=== PATIENT | male | born 1965 | race Caucasian/White ===

== ENCOUNTER 2016-08-07 07:24 | Emergency (ER) | payer MEDICARE ==
[2015-11-02 13:18] VITALS: BMI 41.1
[~2016-08-07 07:24] MED LIST: CELEXA40 MG PO; ELIQUIS2.5 MG PO; HYDROCODONE-APA1 TAB PO; LITHIUM CARBON300 MG PO; LOPRESSOR25 MG PO; NEURONTIN 300300 MG PO; PERCOCET 10/3251 TA1 PO; ZOCOR40 MG PO
== END 2016-08-07 07:55 | disposition home or self-care (01) ==
LOC: D.ER 07:24
DX: M25.562 Pain in left knee (principal); F31.9 Bipolar disorder, unspecified; F20.9 Schizophrenia, unspecified

== ENCOUNTER → 2016-08-17 19:46 | Outpatient (CLI) | payer MEDICARE ==
[2015-11-02 13:18] VITALS: BMI 41.1
== END | disposition home or self-care (01) ==
LOC: D.LABREF 19:46
DX: M25.562 Pain in left knee (principal)

== ENCOUNTER 2016-08-25 09:00 | Inpatient (IN) | payer MEDICARE ==
[~2016-08-25] VITALS: Ht 172.7 cm; Wt 115.0 kg
--- NOTE | ~2016-08-25 | HEMODYNAMI ---
PATIENT:MORGAN SANTIZO MEDICAL RECORD: [id number] : 63 LOCATION:D. D.2216 ADMISSION DATE: 08/29/16 Generatedon:09/01/201614:25 Patient name: MORGAN SANTIZO Patient #: [id number] SSN: : 1965 Date of study: 09/01/2016 Page: Of Hemodynamic Procedure Report Patient Data Patient Demographics Procedure consent was obtained First Name: MORGAN Gender: Male Last Name: SUKHDEV : 1965 [facility] Initial: D Age: 51 year(s) Patient #: [id number] Race: Unknown Additional ID: [id number] Contact details [address]: [address] [place] [address] [place] State: [place] City: [place] Zip code: [address] Admission Admission Data Admission Date: 08/29/2016 Admission Time: 6:09 Room #: D.2216 Procedure Procedure Types Cath Procedure Peripheral Cath Diagnostic Procedure US Vascular Access PICC PICC Line Placement Fluoro Fluoro Guidance Venous Device Procedure Description Procedure Date Procedure Date: 09/01/2016 Procedure Start Time: 14:15 Procedure End Time: 14:23 Procedure Staff Name Function Swapnil Julian MD Performing Physician Deep Herrera RT Scrub Viji Parekh RN Nurse Letha Michel RT Energy Manager Letha Michel RT Monitor Procedure Data Cath Procedure Fluoroscopy Diagnostic fluoroscopy Total fluoroscopy Time: 0.3 time: 0.3 min min Diagnostic fluoroscopy Total fluoroscopy dose: dose: 4.83 mGy 4.83 mGy Procedure Medications Medication Administration Route Dosage Heparin Flush Bag added to field 1 bags (1000units/500ml NS) Lidocaine 1% added to field 20 Hemodynamics Rest Pre Cath Intra NCS Post Cath Medications Time Medication Route Dose Verified Delivered Reason Notes Effe ctiveness by by 14:10:04 Lidocaine 1% added 20ml Viji Kraft for local to vial Izabella Julian anesthetic field SELENA WATTS 14:10:49 Heparin Flush added 1 Viji Kraft used for Bag to bags Izabella Julian procedure (1000units/500ml field SELENA WATTS NS) Procedure Log Time Note 13:50:56 Time tracking: Regular hours 13:50:58 Deep Herrera RT (R) (CV) sent for patient. Start room use. 13:51:11 Patient received from Med/Surg to IR Alert and oriented. Tansferred to table in Supine position. 13:51:27 Signed procedure consent form obtained from patient. 13:51:28 Pre-procedure instructions explained to patient. 13:51:31 Use device set PICC 13:51:35 Bag Decanter opened to sterile field. 13:51:36 Sterile Angiographic Pack opened to sterile field. 13:51:36 SorbaView Shield opened to sterile field. 13:51:39 Pre-op teaching completed and patient verbalized understanding. 13:52:22 Patient pain scale 8/10 knee pain. 13:54:13 Right Arm area was prepped with chlora-prep and draped in sterile fashion 13:54:20 Sedation plan: Local Anesthetic Lidocaine 13:54:21 Sharps counted by scrub and verified by R.N. 14:00:31 PowerPICC 5Fr double lumen catheter opened to sterile field. 14:00:38 SUTURE ETHILON 2-0 BLK MONO FS opened to sterile field. 14:10:04 Lidocaine 1% 20ml vial added to field was administered by Swapnil Julian MD; for local anesthetic; 14:10:49 Heparin Flush Bag (1000units/500ml NS) 1 bags added to field was administered by Swapnil Julian MD; used for procedure; 14:12:55 Physician arrived 14:14:35 --------ALL STOP TIME OUT------ 14:14:36 Final Timeout: patient, procedure, and site verified with staff and physician. All members of the team are in agreement. 14:15:03 Procedure started. 14:15:03 Full Disclosure recording started 14:15:14 Local anesthetic to right arm with Lidocaine 1% by Swapnil Julian MD.INITIAL ACCESS ONLY 14:15:17 Venous access obtained using ultrasound guidance. 14:18:25 PICC line was trimmed to 41cm and advanced to the superior vena cava.Position verified under fluoroscopy. 14:19:15 PICC was secured to the skin with 2.0 ethilon suture. 14:20:14 Procedure ended.(Physican Out) 14:20:28 Fluoroscopy time 00.30 minutes. 14:20:41 Fluoroscopy dose: 4.83 mGy 14:20:41 Flurop Dose total: 4.83 14:20:46 Sharps counted by scrub and verified by R.N. 14:20:55 Post procedure instruction explained to patient.Patient verbalizes understanding. 14:23:22 Procedure and supply charges have been captured, reviewed, submitted and are correct. 14:23:24 See physician's report for complete and final results. 14:23:29 Report given to Med/Surg. 14:23:34 Patient transfered to Med/Surg with Bed. 14:23:37 Procedure ended. 14:23:37 Full Disclosure recording stopped 14:23:41 End room use (Document Last) Device Usage Item Name Manufacture Quantity Catalog Hospital Part Current Minimal Lot# / Number Charge Number Stock Stock Serial# Code Bag Decanter Microtek 1 [id number] 5 Medical [employer]. Sterile Cardinal 1 [id number] 5 Angiographic Health Pack SorbaView Centurion 1 [id number] 5 Shield Power[facility] COUNTY HOSPITALC Bard 1 [id number] [id number] [id number] 5 5Fr double lumen catheter SUTURE Ethicon 1 [id number] 5 ETHILON 2-0 BLK MONO FS Signature Audit [place] Stage Time Signature Unsigned Intra-Procedure 09/01/2016 Letha Michel 2:25:18 PM RT(R) Signatures Monitor : Letha Michel Signature : RT Date : Time : [facility] [address] [place] [address]
[2016-08-25 09:06] LABS: BASOPHILS 0.3 % (0-2); EOSINOPHILS 2.6 % (0-7); HEMATOCRIT 42.9 % (42.0-54.0); HEMOGLOBIN 14.3 g/dL (13.5-17.5); IMMATURE GRANULOCYTES 0.3 % (0-5); LYMPHOCYTES 13.7 % (15-50); MCH 31.4 pg (26.0-34.0); MCHC 33.3 g/dL (31.0-37.0); MCV 94.3 fL (80.0-100.0); MEAN PLATELET VOLUME 9.3 fL (7.4-10.4); MONOCYTES 9.2 % (2-11); NEUTROPHILS 73.9 % (40-80); RBC 4.55 10x6/uL (4.20-6.10); RDW 12.4 % (11.5-14.5); WBC 9.3 10x3/uL (4.8-10.8)
[2016-08-25 09:07] LABS: PLATELET COUNT 587 10x3/uL (130-400)
[2016-08-25 09:14] LABS: INR 1.05 (0.85-1.17); PROTIME 13.6 SECONDS (11.6-15.0)
[2016-08-25 09:26] LABS: CALC OSMOLALITY 271 mosm/kg (275-300); CALCIUM 9.8 mg/dL (8.5-10.1); CARBON DIOXIDE 26.5 mmol/L (21.0-32.0); CHLORIDE - SERUM 100 mmol/L (98-107); GLUCOSE 116 mg/dL (74-106); POTASSIUM - SERUM 4.3 mmol/L (3.5-5.1); SODIUM 136 mmol/L (136-145); UREA NITROGEN 11 mg/dL (7-18); eGFR NON AFRICAN AMERICAN 83 mL/min (90-120)
[2016-08-25 09:32] LABS: APPEARANCE CLEAR (CLEAR); BILIRUBIN NEGATIVE (NEGATIVE); COLOR DK YELLOW (YELLOW); GLUCOSE NEGATIVE (NEGATIVE); KETONE NEGATIVE (NEGATIVE); LEUKOCYTE ESTERASE TRACE (NEGATIVE); NITRITE NEGATIVE (NEGATIVE); PROTEIN TRACE mg/dL (NEGATIVE)
[2016-08-25 09:33] LABS: BACTERIA NONE SEEN /hpf (NONE SEEN); EPITHELIAL CELLS 0-5 /hpf (0-5); MUCUS <1+ /lpf (NONE SEEN); RED CELLS - URINE 0-5 /hpf (0-5); WHITE CELLS - URINE 0-5 /hpf (0-5)
[2016-08-29] VITALS (8 sets, daily range): BP systolic 112–144; BP diastolic 73–95; Ht 172.7 cm; Wt 115.0 kg
--- NOTE | 2016-08-29 19:41 | NUR ---
PATIENT STATED HE LEFT HIS PERSONAL ITEMS IN OUTPATIENT THIS MORNING. CALLED OUTPATIENT SPOKE WITH SAFIA SHE SAID SHE WILL LOOK AND IF SHE HAS ANYTHING OVER THERE SHE WILL BRING IT TO HIM.
--- NOTE | 2016-08-29 20:00 | NUR ---
ASSESSMENT PER FLOWSHEET. IV PATENT LEFT FOREARM OF 1/2NS AT 75CC'S/HR DRESSING TO LEFT KNEE C/D/I WITH IMOBILIZER IN PLACE. SCD'S ON. TIE BUCKER OF DILAUDID IN USE WITH SETTINGS AT 0.2MG Q10MIN W/4MG Q4H L/O.
--- NOTE | 2016-08-29 21:30 | NUR ---
MEDS GIVEN PER MAR.
--- NOTE | 2016-08-29 23:00 | NUR ---
DRESSING TO LEFT KNEE DRAINING RE-INFORCED WITH 4X4'S AND ABD. AND MAYRA WRAP SITE. ICE BAG APPLIED TO KNEE AND IMOBILIZER ON. ELEVATED LEFT LEG ON PILLOWS.
[2016-08-30] VITALS (7 sets, daily range): BP systolic 95–142; BP diastolic 54–82
--- NOTE | 2016-08-30 00:45 | NUR ---
UA SPECIMEN OBTAINED AND SENT TO LAB
[2016-08-30 00:53] LABS: APPEARANCE CLEAR (CLEAR); COLOR YELLOW (YELLOW); GLUCOSE 250 mg/dL (NEGATIVE); LEUKOCYTE ESTERASE NEGATIVE (NEGATIVE); NITRITE NEGATIVE (NEGATIVE); PH 6.5 (5.0-6.0); PROTEIN NEGATIVE (NEGATIVE)
[2016-08-30 00:54] LABS: BILIRUBIN NEGATIVE (NEGATIVE); KETONE NEGATIVE (NEGATIVE); UROBILINOGEN NORMAL (NORMAL)
[2016-08-30 05:06] LABS: HEMATOCRIT 37.6 % (42.0-54.0); HEMOGLOBIN 12.5 g/dL (13.5-17.5); MCHC 33.2 g/dL (31.0-37.0); MCV 93.3 fL (80.0-100.0); MEAN PLATELET VOLUME 9.5 fL (7.4-10.4); RBC 4.03 10x6/uL (4.20-6.10); RDW 12.2 % (11.5-14.5); WBC 12.3 10x3/uL (4.8-10.8)
--- NOTE | 2016-08-30 07:05 | NUR ---
PATIENT RECEIVED IN HIGH TORO POSITION ALERT AND WATCHING TV. NO SIGNS OF DISTRESS NOTED. DENIES NEEDS. SIDE RAILS UP X2. BED IN LOW POSITION. CALL LIGHT AND EDITOR BOOK BUTTON IN REACH.
--- NOTE | 2016-08-30 08:30 | NUR ---
PATIENT ALERT IN BED EATING BREAKFAST. TOLERATING WELL. SCHEDULED MEDICATION ADMINISTERED. DENIES NEEDS. SIDE RAILS UP X2. BED IN LOW POSITION. CALL LIGHT IN REACH. WILL CONTINUE TO MONITOR.
--- NOTE | 2016-08-30 12:00 | NUR ---
PATIENT IN MID TORO POSITION RESTING WITH EYES CLOSED. RESPIRATIONS EVEN AND UNLABORED. WAKES EASY. SCHEDULED IV ABX INITIATED. SIDE RAILS UP X2. BED IN LOW POSITION. CALL LIGHT IN REACH.
--- NOTE | 2016-08-30 12:05 | NUR ---
INCENTIVE SPIROMETER AND TEACHING ON USE PROVIDED. STATES UNDERSTANDING. DENIES NEED. WILL ENCOURAGE USE.
--- NOTE | 2016-08-30 17:27 | NUR ---
ALERT IN BED EATING DINNER. TOLERATING WELL. SIDE RAILS UP X2. BED IN LOW POSITION. CALL LIGHT IN REACH. DENIES NEEDS.
--- NOTE | 2016-08-30 20:00 | NUR ---
ASSESSMENT PER FLOWSHEET. DRESSING TO LEFT KNEE C/D/I IMOBILIZER IN PLACE. IV PATENT LEFT WRIST WITH 1/2NS INFUSING AT 50CC'S/HR. SITE CLEAR. SR UP X2 CALL LIGHT WITHIN REACH . SCD ON RT LEG.
--- NOTE | 2016-08-30 21:15 | NUR ---
MEDS GIVEN PER MAR.
--- NOTE | 2016-08-30 22:28 | NUR ---
AWAKE ALERT WATCHING TV. DENIES NEEDS.
--- NOTE | 2016-08-31 | NUR ---
RESTING QUIETLY DENIES NEEDS.
--- NOTE | 2016-08-31 03:00 | NUR ---
EYES CLOSED RESPIRATIONS WITH EASE AND UNLABORED.
[2016-08-31 05:19] LABS: HEMATOCRIT 34.7 % (42.0-54.0); HEMOGLOBIN 11.5 g/dL (13.5-17.5); MCH 31.1 pg (26.0-34.0); MCHC 33.1 g/dL (31.0-37.0); MCV 93.8 fL (80.0-100.0); MEAN PLATELET VOLUME 9.2 fL (7.4-10.4); RBC 3.7 10x6/uL (4.20-6.10); RDW 12.5 % (11.5-14.5); WBC 9.9 10x3/uL (4.8-10.8)
[2016-08-31 05:47] LABS: CALC OSMOLALITY 271 mosm/kg (275-300); CALCIUM 8.9 mg/dL (8.5-10.1); CARBON DIOXIDE 29.4 mmol/L (21.0-32.0); CHLORIDE - SERUM 100 mmol/L (98-107); CREATININE - SERUM 0.8 mg/dL (0.6-1.3); GLUCOSE 104 mg/dL (74-106); SODIUM 136 mmol/L (136-145); UREA NITROGEN 12 mg/dL (7-18); eGFR NON AFRICAN AMERICAN > 90 mL/min (90-120)
[2016-08-31 06:30] VITALS: BP 132/85
[2016-08-31 08:01] VITALS: BP 122/83
--- NOTE | 2016-08-31 08:02 | NUR ---
AWAKE AND ALERT. ORIENTED X3. NO C/O AT THIS TIME. LUNGS ARE CLEAR BILATERALLY, NO COUGH NOTED. SKIN IS INTACT WITHOUT REDNESS EXCEPT INCISION TO LEFT KNEE WHICH HAS A DRY INTACT DRESSING IN PLACE. SCD'S IN PLACE TO RIGHT LEG AT THIS TIME. IV TO LEFT FOREARM IS PATENT WITHOUT REDNESS AT INSERTION SITE. DENIES NEEDS.
[2016-08-31 10:52] LABS: PROTEIN - BODY FLUID 5.8 G/DL
--- NOTE | 2016-08-31 10:52 | NUR ---
08/31/2016 10:45 DCP: Discharge Planning Patient Name: MORGAN SANTIZO Admission Status: Elective Accout number: [id number] Admission Date: 08-29-2016 : 1965 Admission Diagnosis:INFECT/INFLM REACTION DUE TO INTERNAL R KNEE PROSTH, IN Attending: BRAVO Current LOS: 2 Anticipated DC Date: 09-02-2016 Planned Disposition: Home Primary Insurance: MEDICARE A & B Discharge Planning Comments: CM MET WITH PATIENT TO ASSESS DISCHARGE PLANNING NEEDS. PT STATES HE IS RETURNING TO A [facility] WHERE HE LIVES WITH HIS NIECE AND NEPHEW NICOLE CANNON ) THERE ARE 4 STEPS TO HOME WITH A RAIL AND HIS NEICE AND NEPHEW WILL TAKE HIM HOME WHEN THE TIME COMES. PT STATES THAT IF HH IS NEEDED THAT NICOLE WILL MAKE THE CHOICE OF WHO HE WILL USE. PT HAS A CANE AT HOME. CM WILL CONTINUE TO FOLLOW AND ASSIST WITH NEEDED WITH DISCHARGE PLANNING/NEEDS. [facility] [place] [phone] OCTAVIO BHATTI RN * Is the patient Alert and Oriented? Yes 0 * How many steps to enter\exit or inside your home? 4 0 * PCP [facility] 0 * [facility] [place] 0 * Preadmission Environment Home with Family 0 * ADLs Independent 0 * Equipment Cane 0 * List name and contact numbers for known caregivers / representatives who currently or will assist patient after discharge: NICOLE CANNON [phone] (NIECE) DL (NEPHEW) 0 * Community resources currently utilized None 0 * Additional services required to return to the preadmission environment? No 0 * Can the patient safely return to the preadmission environment? Yes 0 * Has this patient been hospitalized within the prior 30 days at any hospital? No 0
[2016-08-31 11:08] LABS: LYMPH - BF 8 %; MACROPHAGES BF 7 %; NEUT - BF 85 %
--- NOTE | 2016-08-31 11:15 | NUR ---
400CC CLEAR YELLOW URINE IN URINAL. DENIES NEEDS.
--- NOTE | 2016-08-31 12:30 | NUR ---
ATE ALL OF LUNCH. NO C/O AT THIS TIME. DENIES NEEDS.
[2016-08-31 12:46] VITALS: BP 125/83
[2016-08-31 16:17] VITALS: BP 125/69
--- NOTE | 2016-08-31 18:59 | NUR ---
ATE ALL OF SUPPER. DENIES NEEDS. NO CHANGES NOTED.
[2016-08-31 20:00] VITALS: BP 96/72
--- NOTE | 2016-08-31 20:00 | NUR ---
ASSESSMENT PER FLOWSHEET. DRESSING TO LEFT KNEE C/D/I IMMOBILIZER OFF ORDERED. IV PATENT LEFT WRIST OF 1/2NS AT 50CC'S/HR SITE CLEAR. SUPERVISOR CUTTING AND SEWING ROOM OF DILAUDID IN USE WITH SETTINGS AT 0.2MG Q10MIN WITH 4MG Q4H L/O. SR UP X2 CALL LIGHT WITHIN REACH DENIES NEEDS.
--- NOTE | 2016-08-31 21:10 | NUR ---
MEDS GIVEN PER MAR.
--- NOTE | 2016-08-31 21:55 | NUR ---
RESTING QUIETLY WATCHING TV
[2016-09-01] VITALS: BP 112/71
--- NOTE | 2016-09-01 | NUR ---
EYES CLOSED RESPIRATIONS WITH EASE AND UNLABORED. BODY IN GOOD ALIGNMENT.
[2016-09-01 04:00] VITALS: BP 115/78
--- NOTE | 2016-09-01 04:25 | NUR ---
RESTING QUIETLY DENIES NEEDS. SR UP X2 CALL LIGHT WITHIN REACH.
--- NOTE | 2016-09-01 07:35 | NUR ---
AWAKE AND ALERT. ORIENTED X3. NO C/O THIS AM. LUNGS ARE CLEAR BILATERALLY, NO COUGH NOTED. SKIN IS INTACT WITHOUT REDNESS EXCEPT INCISION TO LEFT KNEE WHICH HAS A DRY INTACT DRESSING IN PLACE. IV TO LEFT WRIST IS PATNET WITHOUT REDNESS AT INSERITON SITE. DENIES NEEDS.
[2016-09-01 07:38] VITALS: BP 125/82
[2016-09-01 09:05] LABS: HEMATOCRIT 36.4 % (42.0-54.0); HEMOGLOBIN 12.4 g/dL (13.5-17.5); MCH 31.6 pg (26.0-34.0); MCHC 34.1 g/dL (31.0-37.0); MCV 92.9 fL (80.0-100.0); MEAN PLATELET VOLUME 9.1 fL (7.4-10.4); RBC 3.92 10x6/uL (4.20-6.10); RDW 12.6 % (11.5-14.5); WBC 8.4 10x3/uL (4.8-10.8)
[2016-09-01 09:15] LABS: CALC OSMOLALITY 267 mosm/kg (275-300); CALCIUM 9.3 mg/dL (8.5-10.1); CHLORIDE - SERUM 96 mmol/L (98-107); CREATININE - SERUM 0.9 mg/dL (0.6-1.3); GLUCOSE 147 mg/dL (74-106); POTASSIUM - SERUM 3.8 mmol/L (3.5-5.1); SODIUM 132 mmol/L (136-145); UREA NITROGEN 12 mg/dL (7-18); eGFR NON AFRICAN AMERICAN > 90 mL/min (90-120)
--- NOTE | 2016-09-01 10:09 | NUR ---
Rehab Prescreening Consult recieved and the chart was reviewed. At this time he does not have the need for a 24/7 RN or a physician to see daily. He is POD#2. Rehab will follow while he is here for any changes. Kaylie Myers RN Clinical Liaison, Rehab
--- NOTE | 2016-09-01 10:32 | NUR ---
RESTING QUIETLY IN BED. DENIES NEEDS.
[2016-09-01 12:33] VITALS: BP 111/76
--- NOTE | 2016-09-01 14:25 | NUR ---
GONE VIA BED FOR PICC PLACEMENT.
--- NOTE | 2016-09-01 14:31 | NUR ---
RETURNED FROM PROCEDURE.
[2016-09-01 15:57] VITALS: BP 123/76
--- NOTE | 2016-09-01 18:20 | NUR ---
ATE ALL OF SUPPER. NO C/O AT THIS TIME. DENIES NEEDS.
[2016-09-01 20:00] VITALS: BP 128/75
--- NOTE | 2016-09-01 22:27 | NUR ---
ASSESSED AT THE BEGINNING OF THE SHIFT. HE IS ALERT AND ORIENTED, ABLE TO VERBALIZE NEEDS. HE HAS A URINAL AT THE BEDSIDE AND THE DRESSING TO HIS LEFT KNEE IS DRY AND INTACT. HE IS WEARING A SCD ON THE RIGHT LEG. THERE IS A PICC LINE WE ARE USING FOR FLUIDS AND HE HAS A CLERK ANALYST FOR PAIN CONTROL IN PLACE. NO COMPLAINTS HAVE BEEN VOICED AND HE IS WATCHING TV. THE BED IS LOW, RAILS UP X'S 2 WITH THE CALL LIGHT AT HAND.
[2016-09-02] VITALS: BP 120/73
[2016-09-02 04:00] VITALS: BP 121/68
[2016-09-02 06:33] LABS: HEMATOCRIT 35.7 % (42.0-54.0); HEMOGLOBIN 11.7 g/dL (13.5-17.5); MCH 30.8 pg (26.0-34.0); MCHC 32.8 g/dL (31.0-37.0); MCV 93.9 fL (80.0-100.0); MEAN PLATELET VOLUME 9.2 fL (7.4-10.4); RBC 3.8 10x6/uL (4.20-6.10); RDW 12.5 % (11.5-14.5); WBC 9.7 10x3/uL (4.8-10.8)
[2016-09-02 06:50] LABS: CALC OSMOLALITY 271 mosm/kg (275-300); CALCIUM 9.1 mg/dL (8.5-10.1); CARBON DIOXIDE 31.5 mmol/L (21.0-32.0); CHLORIDE - SERUM 98 mmol/L (98-107); CREATININE - SERUM 0.8 mg/dL (0.6-1.3); POTASSIUM - SERUM 4.1 mmol/L (3.5-5.1); SODIUM 136 mmol/L (136-145); UREA NITROGEN 12 mg/dL (7-18); eGFR NON AFRICAN AMERICAN > 90 mL/min (90-120)
[2016-09-02 06:54] LABS: GLUCOSE 92 mg/dL (74-106)
--- NOTE | 2016-09-02 07:15 | NUR ---
REPORT RECEIVED FROM RESEARCH ASSOCIATE MOLECULAR BIOLOGY NURSE. CALL LIGHT IN REACH.
[2016-09-02] MEDS ORDERED: ELIQUIS2.5 MG PO (07:42)
[2016-09-02] MEDS ORDERED: PERCOCET 10/3251 TA1 PO (07:43)
[2016-09-02] MEDS ORDERED: Ancef 2 GM/Dextrose IV (07:44)
[2016-09-02 07:46] VITALS: BP 133/52
--- NOTE | 2016-09-02 09:11 | NUR ---
ASSESSMENT COMPLETED. SCDs TO RLE. PERCOCET PO WITH AM MEDS D/T PAIN OF 10 TO LEFT KNEE. CALL LIGHT IN REACH. WILL CONTINUE WITH PLAN OF CARE.
--- NOTE | 2016-09-02 10:12 | NUR ---
CM REASSESSMENT NOTE: CM SENT REFERRAL TO [place] OR [facility] - SIGNED THE ECHO FORM FOR EITHER.
--- NOTE | 2016-09-02 10:45 | NUR ---
SITTING IN CHAIR PER PHYSICAL THERAPY. STATES PAIN HAS DECREASED TO AN 8.
--- NOTE | 2016-09-02 11:00 | NUR ---
SITTING UP ON SIDE OF BED BATHING. NO C/O AT THIS TIME. DRESSING TO LEFT KNEE IS DRY AND INTACT. NEURO CHECKS WNL.
[2016-09-02 11:51] VITALS: BP 118/57
--- NOTE | 2016-09-02 12:50 | NUR ---
EATING LUNCH AT THIS TIME. DENIES NEEDS AT THIS TIME. CALL LIGHT IN REACH.
--- NOTE | 2016-09-02 14:19 | OP ---
PATIENT NAME: MORGAN SANTIZO MEDICAL RECORD: [id number] :[birth year] LOCATION:D.MS [id number] ADMISSION DATE:08/29/16 SURGEON: SONJA SCHMITT MD DATE OF OPERATION: 08/29/2016 PREOPERATIVE DIAGNOSIS: Painful total knee arthroplasty of the left knee. 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 PROCEDURES: 1. Excisional debridement and removal of previously placed total knee arthroplasty. 2. Implant of antibiotic cement spacer. SURGEON: Sonja Schmitt MD. ANESTHESIA: General. INTRAOPERATIVE COMPLICATIONS: None. SUMMARY OF PATHOLOGIC FINDINGS: Upon entering the patient's knee, it was clearly purulent. Ironically, preoperative evaluation did not indicate such. OPERATIVE SUMMARY IN DETAIL: After obtaining the appropriate orthopedic surgery consent as well as anesthetic consultation, evaluation and clearance, the patient was brought to the operating room and placed on the operating table in supine position. After general laryngeal mask airway was administered, a tourniquet was placed about the proximal aspect of the right lower extremity. Right lower extremity was then prepped and draped in routine sterile fashion. The leg was elevated and exsanguinated, tourniquet inflated to 350 mmHg. Routine midline incision was taken down for paramedian arthrotomy. When a paramedian arthrotomy was performed, substantial amounts of purulent material came forth. It was sent with multiple cultures, as well as fluid for synovial analysis. At this point, decision was made not to revise the knee. The knee was exposed and ironically, the femur came off with very little degree of difficulty, clearly with infection underneath it as all the cement and the component came off very easily. Likewise, the tibial baseplate came off easily as did the patella indicating osteolysis and loosening of all the components. At this point, the wound was copiously irrigated. A combination of scalpel, curettage and rongeur, excisional debridement was done to include skin, subcutaneous tissue, portions of fat, fascia, muscle and bone. When it was felt that all infectious areas had been cleaned completely, pulsatile lavage was carried out for approximately 12 L. At this point, a size 7 triathlon component was coated completely with antibiotic-laden cement and was placed loosely with doughy cement over the distal femur as was a component of cement in the proximal tibia. Having completed this, the wound was closed with #2 Ethibond followed by #1 Vicryl, 2-0 Vicryl and skin sharon. Sterile dressings were applied. Tourniquet was deflated. A knee immobilizer was applied. The patient was awakened, taken to recovery in stable condition. All final needle and sponge counts were correct. TRANSINT:[id number] Voice Confirmation ID: [id number] DOCUMENT ID: [id number] OPERATIVE REPORT [id number] MORGAN SANTIZO MD, SONJA HICKS at 1419 CC: [id number] DICTATION DATE: 09/02/16913 HEAD TRIMMER: 09/02/16 1211 ADM IN [facility] [address] [place] [address]
--- NOTE | 2016-09-02 14:28 | NUR ---
C/O PAIN OF 10. PERCOCET PO. CALL LIGHT IN REACH.
--- NOTE | 2016-09-02 14:29 | NUR ---
CM REASSESSMENT NOTE: CM SENT NEIL -WAITING ON APPROVAL
--- NOTE | 2016-09-02 16:56 | NUR ---
2 GM ANCEF IVPB PER ORDER. PAIN OF 5 AT THIS TIME. WILL CONTINUE TO MONITOR.
--- NOTE | 2016-09-02 18:38 | NUR ---
REPORT CALLED TO ANA LUISA POSEY. DC'D TO AMBULANCE VIA [facility] WITH lawnmower repair mechanic.
[2016-09-03 08:17] LABS: HEPATITIS C ANTIBODY 0.2 (0.0-0.9)
--- NOTE | 2016-09-05 07:56 | NUR ---
late entry cm-patient discharged Monday to [facility] to a skilled bed.
== END 2016-09-02 18:38 | DRG 465 ==
LOC: D.MS 08-29 06:09 → D.SDCHOLD 08-29 06:09 → D.MS 08-29 16:47
PROVIDERS: Emergency Medicine; Student in an Organized Health Care Education/Training Program; ADMIT Orthopaedic Surgery
PROC: 0SHC08Z Insertion of Spacer into Right Knee Joint, Open Approach (ICD-10-PCS; 2016-08-29)
PROC: 0SPC0JZ Removal of Synthetic Substitute from Right Knee Joint, Open Approach (ICD-10-PCS; principal; 2016-08-29 09:30)
PROC: 02HV33Z Insertion of Infusion Device into Superior Vena Cava, Percutaneous Approach (ICD-10-PCS; 2016-09-01)
PROC: B548ZZA Ultrasonography of Superior Vena Cava, Guidance (ICD-10-PCS; 2016-09-01)
PROC: B5181ZA Fluoroscopy of Superior Vena Cava using Low Osmolar Contrast, Guidance (ICD-10-PCS; 2016-09-01)
DX: T84.53XA Infection and inflammatory reaction due to internal right knee prosthesis, initial encounter (principal); I10 Essential (primary) hypertension; E78.5 Hyperlipidemia, unspecified; F17.200 Nicotine dependence, unspecified, uncomplicated; B95.61 Methicillin susceptible Staphylococcus aureus infection as the cause of diseases classified elsewhere

== ENCOUNTER 2016-11-21 05:16 | Inpatient (IN) | payer MEDICARE ==
[2016-11-18 15:59] LABS: BASOPHILS 0.3 % (0-2); EOSINOPHILS 3.1 % (0-7); HEMATOCRIT 40.2 % (42.0-54.0); IMMATURE GRANULOCYTES 0.3 % (0-5); LYMPHOCYTES 26.7 % (15-50); MCH 31.8 pg (26.0-34.0); MCHC 34.8 g/dL (31.0-37.0); MCV 91.4 fL (80.0-100.0); MEAN PLATELET VOLUME 9.8 fL (7.4-10.4); NEUTROPHILS 61.6 % (40-80); PLATELET COUNT 263 10x3/uL (130-400)
[2016-11-18 16:01] LABS: APPEARANCE CLEAR (CLEAR); BILIRUBIN NEGATIVE (NEGATIVE); COLOR YELLOW (YELLOW); GLUCOSE NEGATIVE (NEGATIVE); KETONE NEGATIVE (NEGATIVE); LEUKOCYTE ESTERASE NEGATIVE (NEGATIVE); NITRITE NEGATIVE (NEGATIVE); PROTEIN NEGATIVE (NEGATIVE); UROBILINOGEN NORMAL (NORMAL)
[2016-11-18 16:15] LABS: INR 0.93 (0.85-1.17); PROTIME 12.3 SECONDS (11.6-15.0)
[2016-11-18 16:16] LABS: APTT 26.8 SECONDS (22.8-39.4)
[2016-11-18 16:26] LABS: CALC OSMOLALITY 275 mosm/kg (275-300); CALCIUM 8.9 mg/dL (8.5-10.1); CARBON DIOXIDE 27.2 mmol/L (21.0-32.0); CHLORIDE - SERUM 102 mmol/L (98-107); CREATININE - SERUM 0.8 mg/dL (0.6-1.3); GLUCOSE 109 mg/dL (74-106); POTASSIUM - SERUM 3.9 mmol/L (3.5-5.1); SODIUM 138 mmol/L (136-145); UREA NITROGEN 10 mg/dL (7-18); eGFR NON AFRICAN AMERICAN > 90 mL/min (90-120)
[~2016-11-21] VITALS: Ht 172.7 cm; Wt 131.8 kg
[~2016-11-21 05:16] MED LIST changes: +Ancef 2 GM/Dextrose IV
[2016-11-21 13:28] VITALS: BP 157/94; BMI 44.1
--- NOTE | 2016-11-21 20:58 | NUR ---
PT ARRIVED IN ROOM AT 2014, PILLOW UNDER LEFT KNEE, PER RN PT HAS 3 BLOCKS AT THE MOMENT. PT IS ALERT AND ORIENTED VERBALIZED NO PAIN AT THIS TIME. PT STATED VERY HUNGRY, GAVE SANDWICH, BED IN LOW POSITION, ICED KNEE, CALL LIGHT IN REACH
[2016-11-22] VITALS: BP 118/64
[2016-11-22 04:00] VITALS: BP 111/65
[2016-11-22 05:20] LABS: BASOPHILS 0 % (0-2); EOSINOPHILS 0.1 % (0-7); HEMATOCRIT 35.2 % (42.0-54.0); HEMOGLOBIN 12.2 g/dL (13.5-17.5); IMMATURE GRANULOCYTES 0.2 % (0-5); LYMPHOCYTES 4.7 % (15-50); MCH 31.9 pg (26.0-34.0); MCHC 34.7 g/dL (31.0-37.0); MCV 91.9 fL (80.0-100.0); MEAN PLATELET VOLUME 10.2 fL (7.4-10.4); MONOCYTES 5.7 % (2-11); NEUTROPHILS 89.3 % (40-80); PLATELET COUNT 241 10x3/uL (130-400); RBC 3.83 10x6/uL (4.20-6.10); RDW 13.8 % (11.5-14.5); WBC 9.2 10x3/uL (4.8-10.8)
[2016-11-22 05:31] LABS: PROTIME 13.1 SECONDS (11.6-15.0)
[2016-11-22 05:42] LABS: CALC OSMOLALITY 273 mosm/kg (275-300); CALCIUM 8.4 mg/dL (8.5-10.1); CARBON DIOXIDE 26.2 mmol/L (21.0-32.0); CHLORIDE - SERUM 102 mmol/L (98-107); CREATININE - SERUM 0.9 mg/dL (0.6-1.3); GLUCOSE 126 mg/dL (74-106); POTASSIUM - SERUM 4.3 mmol/L (3.5-5.1); SODIUM 135 mmol/L (136-145); UREA NITROGEN 17 mg/dL (7-18); eGFR NON AFRICAN AMERICAN > 90 mL/min (90-120)
[2016-11-22 06:11] VITALS: BP 118/64; Ht 172.7 cm; Wt 131.8 kg
--- NOTE | 2016-11-22 08:23 | NUR ---
PT SEEN THIS AM. NO COMPLAINTS AT PRESENT-STATES SIDER IS CONTROLLING PAIN WHEN NEEDED. MAYRA WRAT LEFT KNEE NOTED TO BE BLOOD STAINED-PAD UNDER KNEE CHANAED TO MONITOR FOR BLEEDING THIS AM. CALL LIGHT IN REACH
[2016-11-22 08:42] VITALS: BP 121/71
--- NOTE | 2016-11-22 11:20 | NUR ---
REPORT RECIEVED, ASSUMED CARE. PATIENT IN BED WITH IV INTACT. NO COMPLAINTS AT THIS TIME. CALL LIGHT WITHIN REACH. SITTING UP IN CHAIR. DRESSING BLEEDING THROUGH MAYRA. EXPLAINED TO PATIENT WOULD REINFORCE. VERBALIZED UNDERSTANDING.
--- NOTE | 2016-11-22 11:21 | NUR ---
Patient Name: MORGAN SANTIZO Admission Status: Elective Accout number: [id number] Admission Date: 11-21-2016 : 1965 Admission Diagnosis: Attending: BRAVO Current LOS: 1 Anticipated DC Date: Planned Disposition: Alf Facility Primary Insurance: MEDICARE A & B Discharge Planning Comments: CM met with patient to asses discharge planning needs. Patient stated that his plan was to return to the [facility] then to his home with his Niece, Renea. He stated that he is currently living at [place] till he gets better. Patient states that he has a walker and a shower chair. He is using the SC wheelchair at this time. CM will continue to follow and assist s needed. PCP: [facility] [place] ([place]) [phone] Dairy Farmer: Evelyne Ingram * Is the patient Alert and Oriented? Yes 0 * How many steps to enter\exit or inside your home? 7 0 * PCP [facility] 0 * Pharm[facility] [place] 0 * Preadmission Environment Alf Facility 0 * Facility Name [facility] 0 * ADLs Partial Dependent 0 * Partial ADLs (Assistance needed) Ambulation Transfers 0 * Equipment Shower Chair Walker 0 * List name and contact numbers for known caregivers / representatives who currently or will assist patient after discharge: RENEA TILLEY) [phone] * Community resources currently utilized None 0 * Additional services required to return to the preadmission environment? Yes 0 * Can the patient safely return to the preadmission environment? Yes 0 * Has this patient been hospitalized within the prior 30 days at any hospital? No 0 Grand Total: 0
--- NOTE | 2016-11-22 12:10 | NUR ---
PATIENT MAYRA WRAP CHANGED AND GAUZE AND MAYRA WRAP PLACED BACK ON. NO COMPLAINTS AT THIS TIME. IV INTACT. CALL LIGHT WITHIN REACH.
[2016-11-22 14:10] VITALS: BP 132/89
--- NOTE | 2016-11-22 15:51 | NUR ---
DISCONTINUED SHIRRING MACHINE OPERATOR AND PAIN MED GIVEN. IV INTACT, CALL LIGHT WITHIN REACH.
--- NOTE | 2016-11-22 17:30 | NUR ---
PATIENT SITTING UP IN BED EATING AT THIS TIME. IV INTACT. NO COMPLAINTS. CALL LIGHT WITHIN REACH.
[2016-11-22 19:00] VITALS: BP 134/89
--- NOTE | 2016-11-22 19:00 | NUR ---
IV REMOVED PER PATIENT REQUEST. CATH TIP INTACT. EXPLAINED TO PATIENT IF IV NEEDED HE WILL HAVE TO HAVE ONE RESTARTED. VERBALIZED UNDERSTANDING. CALL LIGHT WITHIN REACH.
[2016-11-23] VITALS: BP 122/80
--- NOTE | 2016-11-23 02:10 | NUR ---
2315)IV RESITED FOR IV ABX #22 X3 STICKS. PAVAN WELL WILL CONTINUE TO MONITOR FOR ANY CHGES. IN NEUROVASCULAR STSTUS AND FOLLOW CURRENT PLAN OF CARE
[2016-11-23 04:00] VITALS: BP 139/42
[2016-11-23 05:46] LABS: HEMATOCRIT 33.9 % (42.0-54.0); HEMOGLOBIN 11.4 g/dL (13.5-17.5)
--- NOTE | 2016-11-23 07:20 | NUR ---
PATIENT RECEIVED ALERT IN BED IN HIGH TORO POSITION. NO SIGNS OF DISTRESS NOTED. RATES PAIN 9/10. SIDE RAILS UP X2. BED IN LOW POSITION. CALL LIGHT IN REACH.
--- NOTE | 2016-11-23 08:00 | NUR ---
PATIENT ALERT IN BED. NO SIGNS OF DISTRESS NOTED. SCHEDULED MEDICATION WELL PRN TORADOL ADMINISTERED. DENIES FURTHER NEEDS. INCENTIVE SPIROMETER AND TEACHING PROVIDED. STATES UNDERSTANDING. SIDE RAILS UP X2. BED IN LOW POSITION. CALL LIGHT IN REACH.
[2016-11-23 08:38] VITALS: BP 127/81
--- NOTE | 2016-11-23 09:29 | NUR ---
Wound care consult/computer generated/ s/p left knee revision. Will monitor as needed.
--- NOTE | 2016-11-23 11:10 | NUR ---
SITTING UP IN CHAIR AT BEDSIDE. NO SIGNS OF DISTRESS NOTED. RATES PAIN 5/10. DENIES NEEDS. CALL LIGHT IN REACH.
[2016-11-23 12:57] VITALS: BP 135/79
--- NOTE | 2016-11-23 13:29 | NUR ---
SITTING UP IN CHAIR ALERT. NO SIGNS OF DISTRESS NOTED. PERCOCET PER PRN ORDER. DENIES FURTHER NEEDS. CALL LIGHT IN REACH.
--- NOTE | 2016-11-23 14:00 | NUR ---
PATIENT ALERT IN BED. SCD TO RIGHT LEG, PLEXI TO LEFT FOOT. DENIES NEEDS. SIDE RAILS UP X2. BED IN LOW POSITION. CALL LIGHT IN REACH.
--- NOTE | 2016-11-23 18:15 | NUR ---
ALERT IN BED VISITING WITH GUEST. NO SIGNS OF DISTRESS NOTED. PERCOCET PER PRN ORDER. DENIES FURTHER NEEDS. SIDE RAILS UP X2. BED IN LOW POSITION. CALL LIGHT IN REACH.
[2016-11-23 20:00] VITALS: BP 135/79
[2016-11-24] VITALS: BP 136/68
--- NOTE | 2016-11-24 00:04 | NUR ---
1944)REC'D. UP IN W/C IN [facility] DENIES ANY COMPLAINTS AT PRESENT TIME WILL CONTINE TO MONITOR NEUROVASCULAR STATUS AND FOLLOW CURRENT PLAN OF CARE
--- NOTE | 2016-11-24 03:36 | NUR ---
EYES CLOSED RESPIRATIONS WITH CHICHO AND UNLABORED.
[2016-11-24 04:00] VITALS: BP 139/92
[2016-11-24 05:56] LABS: HEMATOCRIT 33.5 % (42.0-54.0); HEMOGLOBIN 11.2 g/dL (13.5-17.5)
--- NOTE | 2016-11-24 07:10 | NUR ---
PATIENT RECEIVED ALERT IN MID TORO POSITION WATCHING TV. NO SIGNS OF DISTRESS NOTED. DENIES NEEDS. SIDE RAILS UP X2. BED IN LOW POSITION. CALL LIGHT IN REACH.
--- NOTE | 2016-11-24 07:53 | NUR ---
ALERT IN BED. SCHEDULED MEDICATION ADMINISTERED WELL PRN PERCOCET. NO FURTHER NEEDS VOICED. SIDE RAILS UP X2. BED IN LOW POSITION. CALL LIGHT IN REACH.
[2016-11-24] MEDS ORDERED: ELIQUIS2.5 MG PO ×2 (08:19→08:27)
[2016-11-24 08:26] VITALS: BP 177/96
[2016-11-24] MEDS ORDERED: PERCOCET 10/3251 TA1 PO (08:27)
--- NOTE | 2016-11-24 08:30 | NUR ---
IV TO LEFT UPPER ARM D/C WITH CATH TIP INTACT. SITE COVERED WITH GAUZE AND BANDAID.
--- NOTE | 2016-11-24 11:10 | NUR ---
PATIENT IN MID TORO POSITION RESTING WITH EYES CLOSED. RESPIRATIONS EVEN AND UNLABORED. SIDE RAILS UP X2. BED IN LOW POSITION. CALL LIGHT IN REACH.
--- NOTE | 2016-11-24 12:37 | NUR ---
PATIENT DISCHARGING BACK TO [facility] [place] [facility]. PATIENT WILL BE IN A SKILLED BED VIA [facility].
[2016-11-24 12:57] VITALS: BP 150/58
--- NOTE | 2016-11-24 15:00 | NUR ---
REPORT CALLED TO [facility]. BERTA RECEIVED REPORT.
--- NOTE | 2016-11-24 16:30 | NUR ---
patient d/c to [facility] via wheelchair with [facility] staff
== END 2016-11-24 16:33 | DRG 467 ==
LOC: D.MS 05:16 → D.SDCHOLD 05:16 → D.MS 18:54
PROVIDERS: ADMIT Orthopaedic Surgery
PROC: 0SPC08Z Removal of Spacer from Right Knee Joint, Open Approach (ICD-10-PCS; 2016-11-21)
PROC: 0SRC0JZ Replacement of Right Knee Joint with Synthetic Substitute, Open Approach (ICD-10-PCS; principal; 2016-11-21 13:50)
DX: Z47.33 Aftercare following explantation of knee joint prosthesis (principal); D62 Acute posthemorrhagic anemia; I10 Essential (primary) hypertension; E78.5 Hyperlipidemia, unspecified; F99 Mental disorder, not otherwise specified; F17.200 Nicotine dependence, unspecified, uncomplicated

== ENCOUNTER → 2017-06-02 10:26 | Outpatient (CLI) | payer MEDICARE ==
[2016-11-22 06:11] VITALS: BMI 44.1
== END | disposition home or self-care (01) ==
LOC: D.MRI 05-24 13:00
DX: M54.16 Radiculopathy, lumbar region (principal)

== ENCOUNTER → 2017-06-08 10:20 | Outpatient (CLI) | payer MEDICARE ==
[2016-11-22 06:11] VITALS: BMI 44.1
== END | disposition home or self-care (01) ==
LOC: D.CT 06-06 13:00
DX: I73.9 Peripheral vascular disease, unspecified (principal)

== ENCOUNTER 2020-08-01 15:33 | Emergency (ER) | payer MEDICARE, MEDICAID ==
[~2020-08-01] VITALS: Ht 172.7 cm; Wt 155.1 kg
[2020-08-01 15:39] VITALS: Ht 172.7 cm; Wt 155.1 kg
[2020-08-01 16:16] LABS: BASOPHILS 0.2 % (0-2); EOSINOPHILS 2.9 % (0-7); HEMATOCRIT 48.9 % (42.0-54.0); HEMOGLOBIN 16.2 g/dL (13.5-17.5); IMMATURE GRANULOCYTES 0.5 % (0-5); LYMPHOCYTE ABS# 2.18 10x3/uL (1.32-3.57); LYMPHOCYTES 19.8 % (15-50); MCHC 33.1 g/dL (31.0-37.0); MCV 93.5 fL (80.0-100.0); MEAN PLATELET VOLUME 10.2 fL (7.4-10.4); MONOCYTES 6.2 % (2-11); NEUTROPHIL ABS# 7.75 10x3/uL (1.78-5.38); NEUTROPHILS 70.4 % (40-80); PLATELET COUNT 283 10x3/uL (130-400); RBC 5.23 10x6/uL (4.20-6.10)
[2020-08-01 16:22] LABS: BILIRUBIN NEGATIVE (NEGATIVE); KETONE NEGATIVE (NEGATIVE); NITRITE NEGATIVE (NEGATIVE); UROBILINOGEN NORMAL mg/dL (< 2)
[2020-08-01 16:26] LABS: CALC OSMOLALITY 276 mosm/kg (275-300); CALCIUM 9.1 mg/dL (8.5-10.1); CARBON DIOXIDE 28.1 mmol/L (21.0-32.0); CHLORIDE - SERUM 100 mmol/L (98-107); GLUCOSE 171 mg/dL (74-106); SODIUM 137 mmol/L (136-145); UREA NITROGEN 11 mg/dL (7-18); eGFR NON AFRICAN AMERICAN 82 mL/min (90-120)
[2020-08-01 16:27] LABS: BACTERIA MANY HPF (NONE SEEN); SQUAMOUS EPITHELIAL 0-5 HPF (0-4)
[2020-08-01 16:32] LABS: UDS - AMPHET POSITIVE QUAL (NEGATIVE); UDS - BARB NEGATIVE QUAL (NEGATIVE); UDS - BENZO NEGATIVE QUAL (NEGATIVE); UDS - COCAINE NEGATIVE QUAL (NEGATIVE); UDS - OPIATE NEGATIVE QUAL (NEGATIVE); UDS - PCP NEGATIVE QUAL (NEGATIVE); UDS - THC POSITIVE QUAL (NEGATIVE)
[2020-08-01 16:39] LABS: ALBUMIN 3.1 g/dL (3.4-5.0); ALKALINE PHOSPHATASE 90 U/L (30-120); ALT (SGPT) 27 U/L (10-68); BILIRUBIN - TOTAL 0.68 mg/dL (0.2-1.3); PRO BNP 153 pg/mL (0-125); PROTEIN - SERUM 8.1 g/dL (6.4-8.2); TROPONIN-I < 0.017 ng/mL (0.000-0.060)
[2020-08-01] MEDS ORDERED: VOLTAREN25 MG PO (18:27)
[2020-08-01] MEDS ORDERED: METOPROLOL TART25 MG PO (18:30)
[2020-08-01 18:34] VITALS: BP 160/70
== END 2020-08-01 18:35 | disposition home or self-care (01) ==
LOC: D.ER 15:33
PROVIDERS: Family Medicine
DX: M79.605 Pain in left leg (principal); M79.604 Pain in right leg; I10 Essential (primary) hypertension; R22.43 Localized swelling, mass and lump, lower limb, bilateral; E78.5 Hyperlipidemia, unspecified; R53.1 Weakness